=== PATIENT | male | born 1980 | race Caucasian/White ===

== ENCOUNTER 2017-01-31 09:22 | Emergency (ER) | payer BC ==
[2017-01-31] MEDS ORDERED: Tamsulosin 0.4 MG Cap.ER PO ONE (09:28)
[2017-01-31] MEDS ORDERED: Ondansetron 4 MG/2 ML SDV IVPUSH ONE (09:28)
[2017-01-31] MEDS ORDERED: Sodium Chloride 0.9% 10 ML Syringe FLUSH PRN (09:28)
[2017-01-31] MEDS ORDERED: Famotidine 20 MG/2 ML SDV IVPUSH ONE (09:28)
[2017-01-31] MEDS ORDERED: Ketorolac 30 MG/ML SDV IVPUSH ONE (09:28)
--- NOTE | 2017-01-31 09:28 | EDM.PDOC ---
ED HPI GENERAL MEDICAL PROBLEM - General Chief Complaint: Flank Pain Stated Complaint: Right side flank pain Time Seen by Provider: 01/31/17 09:25 Source of Information: Reports: Patient, Other. Denies: Old Records (No [facility] records available) History Limitations: Reports: No Limitations - History of Present Illness INITIAL COMMENTS - FREE TEXT/NARRATIVE: The patient was brought to the emergency room via private automobile by his coworker for evaluation of sudden onset 10/10 right-sided colic with symptoms starting at about 8 AM this morning when he woke up. His symptoms are similar to his previous recurrent colic attacks as below with patient already having a history of gout, although he is not on a special diet at this time. He denies any gross hematuria or other significant UTI symptoms. No recent history of other abdominal pain, heartburn, diarrhea, melena, gross hematochezia, or any food intolerance, including fatty foods, etc., although some mild nausea without emesis with his colic. His last bowel movement this morning was normal. The patient denies any chest pain/pressure, heart flutter, dizziness, orthostasis, orthopnea, paresthesias, recent decreased exercise tolerance, or any other anginal-type symptoms, however he does have some diaphoresis with his colic type symptoms. The patient also denies any recent fever, cough, wheezing, dyspnea, etc.. The patient has not taken his morning medications to this point. He has not taken any medications for his symptoms prior to arrival Onset: Today, Sudden Onset Date: 01/31/17 Onset Time: 08:00 Duration: Constant, Getting Worse Location: Reports: Abdomen. Denies: Head, Face, Neck, Chest, Back, Pelvis, Upper Extremity, Left, Upper Extremity, Right, Radiates to Quality: Reports: Same as Previous Episode, Sharp, Stabbing Severity: Severe Improves with: Reports: None Worsens with: Reports: None Context: Reports: Other (As above) Associated Symptoms: Reports: Diaphoresis, Nausea/Vomiting (No emesis). Denies : Confusion, Chest Pain, Cough, Fever/Chills, Headaches, Loss of Appetite, Malaise, Shortness of Breath, Syncope, Weakness Treatments FACE WORKER: Reports: Other (see below) (None) Right Flank Pain Pain Score (Numeric/FACES): 10 - Related Data Allergies Allergy/AdvReac Type Severity Reaction Status Date / Time amoxicillin Allergy Hives Verified 01/31/17 09:24 Penicillins Allergy Hives Verified 01/31/17 09:24 Home Meds: Home Meds Allopurinol [Zyloprim] 300 mg PO QAM 01/31/17 [History] Cetirizine [ZyrTEC] 10 mg PO QAM 01/31/17 [History] Levothyroxine Sodium [Synthroid] 300 mcg PO QAM 01/31/17 [History] Propranolol HCl [Propranolol] 10 mg PO BID 01/31/17 [History] Past Medical History HEENT History: Reports: Allergic Rhinitis, Impaired Vision, Other (See Below). Denies: Cataract, Glaucoma, Hard of Hearing, Macular Degeneration, Retinal Detachment Other HEENT History: The patient wears glasses; seasonal allergies Cardiovascular History: Reports: Hypertension. Denies: Afib, Aneurysm, Arrhythmia, Blood Clots/VTE/DVT, CAD, Heart Murmur, High Cholesterol, CA, Syncope Respiratory History: Reports: Asthma, Intubation, Previous, Sleep Apnea, Other ( See Below). Denies: COPD, PE, Pneumothorax, TB Other Respiratory History: Asthma since childhood with no current medications required. Patient has been compliant with his CPAP Gastrointestinal History: Reports: None. Denies: Celiac Disease, Cholelithiasis , Chronic Constipation, Chronic Diarrhea, Colon Polyp, Diverticulosis, Fecal Incontinence, Gastritis, GERD, Hepatitis, Hiatal Hernia, Inflammatory Bowel Disease, Irritable Bowel Syndrome, Jaundice, Pancreatitis, PUD Genitourinary History: Reports: Hydronephrosis, Renal Calculus, UTI, Recurrent, Other (See Below). Denies: Acute Renal Failure, Chronic Renal Insuffiency, Retention, Urinary, Urinary Incontinence Other Genitourinary History: History of recurrent UTIs and hydronephrosis with urolithiasis/colic; bilateral urolithiasis with recurrent colic with initial episode in about 2009 and last episode in in 2013 Musculoskeletal History: Reports: Arthritis, Gout. Denies: Amputation, Back Pain, Chronic, Fracture, Neck Pain, Chronic, Osteoarthritis, RA, SLE Neurological History: Reports: Headaches, Chronic, Migraines, Other (See Below) . Denies: Cerebral Aneurysms, Concussion, CVA, Head Trauma, MS, Neuropathy, Peripheral, Parkinson's, Seizure, TIA Other Neuro History: Migraine headaches about twice per year including previous ocular migraine on the left side; benign congenital cerebral lipoma? Psychiatric History: Reports: None. Denies: Abuse, Victim of, ADD, ADHD, Addiction, Anxiety, Depression, Psych Hospitalization(s), PTSD, Suicide Attempt , Suicidal Ideation Endocrine/Metabolic History: Reports: Hypothyroidism, Obesity/BMI 30+. Denies: Diabetes, Type I, Diabetes, Type II, IDDM Hematologic History: Reports: None. Denies: Anemia, Blood Transfusion(s), Iron Deficiency Immunologic History: Reports: None. Denies: AIDS, HIV, SLE Oncologic (Cancer) History: Reports: None. Denies: Basal Cell Carcinoma, Hodgkin's Lymphoma, Leukemia, Lymphoma, Malignant Melanoma, Non-Hodgkin's Lymphoma, Squamous Cell Carcinoma Dermatologic History: Reports: None. Denies: Eczema, Psoriasis - Infectious Disease History Infectious Disease History: Reports: Chicken Pox. Denies: C-Difficile, Measles , Meningitis, Mononucleosis, MRSA, Mumps, Pertussis (Whooping Cough), Rheumatic Fever, Rubella, Scarlet Fever, Shingles, TB, VRE - Past Surgical History Head Surgeries/Procedures: Reports: None HEENT Surgical History: Reports: Oral Surgery, Other (See Below). Denies: Adenoidectomy, Cataract Surgery, Eye Surgery, Laser Surgery, LASIK, Myringotomy w Tube(s), Naso-Sinus Surgery, Tonsillectomy Other HEENT Surgeries/Procedures: [place] teeth extraction 2 in about 2011 Cardiovascular Surgical History: Reports: None. Denies: Varicose, Vascular Surgery Respiratory Surgical History: Reports: None. Denies: Thoracentesis GI Surgical History: Reports: None. Denies: Appendectomy, Cholecystectomy, Colonoscopy, EGD, Hernia, Abdominal, Hernia, Inguinal, Hernia Repair/Other Male Surgical History: Reports: Circumcision, Kidney Stone Extraction, Renal Calculus, Vasectomy, Other (See Below). Denies: Lithotripsy (ESWL), TURP- Transurethral Resection of Prostate, Varicocele Resection Other Male Surgeries/Procedures: Circumcision as a child; vasectomy 2006; bilateral stone removal Neurological Surgical History: Reports: None. Denies: C-Spine, Discectomy, Laminectomy, Lumbar Spine, Sacral Spine, Spinal Fusion Musculoskeletal Surgical History: Reports: None. Denies: Arthroscopic Procedure , Carpal Tunnel, Ganglion Cyst, Joint Replacement, ORIF, Shoulder Surgery Oncologic Surgical History: Reports: None Dermatological Surgical History: Reports: None - Past Imaging History Past Imaging History: Reports: Cardiac Echo (2010), CAT Scan (CT scans of the abdomen and pelvis secondary to recurrent urolithiasis), MRI (Brain in 2010), Sleep Study (Sleep study in the early ) Social & Family History - Tobacco Use Smoking Status *Q: Current Every Day Smoker Tobacco Use Within Last Twelve Months: Cigarettes Years of Tobacco use: 19 Packs/Tins Daily: 0.5 (Started smoking at age 17) Packs/Tins Daily Comment: Trying to quit smoking with last use about 2 weeks ago Used Tobacco, but Quit: Yes Smoking Cessation Information Provided To Patient: Yes Second Hand Smoke Exposure: Yes Source of Second Hand Smoke Exposure: Fianc and son smoke Second Hand Smoke Education Provided: Yes - Caffeine Use Caffeine Use: Reports: Soda (2 sodas per day). Denies: Coffee, Energy Drinks, Tea - Alcohol Use Alcohol Use History: Yes Days Per Week of Alcohol Use: 0 (No previous DWIs, problems with alcohol abuse, etc.) Number of Drinks Per Day: 1 (Usually mixed drinks once per month) Total Drinks Per Week: 0 Alcohol Use in Last Twelve Months: Yes Alcohol Use Frequency: Socially - Recreational Drug Use Recreational Drug Use: Yes Drug Use in Last 12 Months: No Recreational Drug Type: Reports: Marijuana/Hashish (Experimentation in 1999). 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 Denies: Fever, Chills, Weakness, Fatigue, Night Sweats, Decreased Appetite, Weight Loss HEENT: Reports: Glasses. Denies: Contact Lenses, Dental Pain, Ear Discharge, Ear Pain, Eye Discharge, Eye Pain, Hearing Loss, Sinus Problem, Throat Pain, Throat Swelling, Vertigo, Vision Change Respiratory: Reports: No Symptoms. Denies: Shortness of Breath, Wheezing, Pleuritic Chest Pain, Cough, Hemoptysis Cardiovascular: Reports: No Symptoms. Denies: Chest Pain, Blood Pressure Problem, Claudication, Dyspnea on Exertion, Edema, Lightheadedness, Orthopnea, Palpitations, Syncope Endocrine: Reports: No Symptoms. Denies: Fatigue GI/Abdominal: Reports: Abdominal Pain (Colic), Nausea (With colic). Denies: Anorexia, Black Stool, Bloody Stool, Constipation, Diarrhea, Decreased Appetite , Difficulty Swallowing, Distension, Flatus, Hematemesis, Hematochezia, Melena, Mucous in Stool, Stool Incontinence, Vomiting : Reports: Flank Pain (Right-sided). Denies: Discharge, Dysuria, Frequency, Hematuria, Incontinence, Irregular Menses, Pain, Urgency, Urinary Retention Musculoskeletal: Reports: No Symptoms. Denies: Neck Pain, Shoulder Pain, Arm Pain, Back Pain, Leg Pain Skin: Reports: Diaphoresis (With colic). Denies: Cyanosis, Jaundice, Mottled, Pallor, Bruising, Pruritis, Wound Neurological: Reports: No Symptoms. Denies: Confusion, Dizziness, Headache, Numbness, Paresthesia, Seizure, Syncope, Tingling, Tremors, Weakness Psychiatric: Reports: No Symptoms. Denies: Agitation, Anxiety, Confusion, Cravings, Depression, Hallucinations Hematologic/Lymphatic: Reports: No Symptoms Immunologic: Reports: No Symptoms ED EXAM, RENAL/ - Physical Exam Exam: See Below Exam Limited By: No Limitations General Appearance: Alert, WD/WN, Mild Distress (Secondary to colic) Head: Atraumatic, Normocephalic Neck: Normal Inspection, Supple, Non-Tender, Full Range of Motion. No: Lymphadenopathy (L), Lymphadenopathy (R), Thyromegaly Respiratory/Chest: No Respiratory Distress, Lungs Clear, Normal Breath Sounds, No Accessory Muscle Use, Chest Non-Tender. No: Pleural Rub, Retractions Cardiovascular: Normal Peripheral Pulses, Regular Rate, Rhythm, No Edema, No Gallop, No JVD, No Murmur, No Rub. No: Gallop/S3, Gallop/S4, Friction Rub GI/Abdominal: Normal Bowel Sounds, Soft, Non-Tender, No Organomegaly, No Distention, No Abnormal Bruit, No Mass, Pelvis Stable. No: Guarding (Male) Exam: Deferred Rectal (Males) Exam: Deferred Back Exam: Full Range of Motion, CVA Tenderness (R) (Borderline but mostly colic ). No: CVA Tenderness (L), Muscle Spasm Extremities: Normal Inspection, Normal Range of Motion, Non-Tender, No Pedal Edema, Normal Capillary Refill. No: Vinay's Sign Neurological: Alert, Oriented, CN II-XII Intact, Normal Cognition, Normal Gait, Normal Reflexes (Negative Babinski's), No Motor/Sensory Deficits Psychiatric: Normal Affect, Normal Mood Skin Exam: Warm, Intact, Normal Color, No Rash, Diaphoretic (Secondary to colic) , Tattoo(s) (Multiple) Lymphatic: No Adenopathy Course - Vital Signs Last Recorded V/S: Last Vital Signs Temp 36.6 C 01/31/17 09:25 Pulse 74 01/31/17 09:25 Resp 20 01/31/17 09:25 BP 136/81 01/31/17 10:00 Pulse Ox 100 01/31/17 09:25 Vital Signs - 24 hr 01/31/17 01/31/17 09:25 10:00 Temperature [ 36.6 C Oral] Pulse, 74 Peripheral [ Pulse Oximetry] Respiratory 20 Rate Blood Pressure 161/101 H 136/81 [Left Upper Arm ] O2 Sat by Pulse 100 Oximetry - Orders/Labs/Meds Orders: Active Orders 24 hr Category Date Time Status Peripheral IV Care [RC] . DIRECTED Care 01/31/17 09:28 Active Abdomen Pelvis wo Cont [CT] Stat Exams 01/31/17 09:31 Taken CULTURE URINE [RM] Routine Lab 01/31/17 11:39 Received Obtain Past Medical Record [OM.PC] Routine Oth 01/31/17 09:29 Active Peripheral IV Insertion Adult [OM.PC] Stat Oth 01/31/17 09:28 Ordered Labs: Laboratory Tests 01/31/17 01/31/17 01/31/17 Range/Units 10:00 10:00 10:00 WBC 9.5 (4.0-10.2) K/uL RBC 4.54 (4.33-5.41) M/uL Hgb 14.7 (13.1-16.8) g/dL Hct 43.0 (39.0-49.0) % MCV 94.7 (84.0-98.0) fL MCH 32.4 (28.2-33.3) pg MCHC 34.2 (31.7-36.0) g/dL RDW 14.6 H (11.2-14.1) % Plt Count 239 (150-350) K/uL Neut % (Auto) 59.4 (45.0-80.0) % Lymph % (Auto) 26.2 (10.0-50.0) % [place] % (Auto) 11.4 (2.0-14.0) % Eos % (Auto) 2.6 (0.0-5.0) % Baso % (Auto) 0.4 (0.0-2.0) % Neut # (Auto) 5.66 (1.40-7.00) K/uL Lymph # (Auto) 2.50 (0.50-3.50) K/uL [place] # (Auto) 1.09 H (0.00-1.00) K/uL Eos # (Auto) 0.25 (0.00-0.50) K/uL Baso # (Auto) 0.04 (0.00-0.20) K/uL Sodium 139 (136-145) mmol/L Potassium 3.6 (3.5-5.1) mmol/L Chloride 102 (98-107) mmol/L Carbon Dioxide 26.5 (21.0-32.0) mmol/L BUN 8 (7-18) mg/dL Creatinine 0.73 (0.51-1.17) mg/dL Est Cr Clr Drug Dosing 152.07 mL/min Estimated GFR (MDRD) > 60 mL/min Glucose 175 H (74-106) mg/dL Hemoglobin A1c (4.3-5.7) % Uric Acid 5.3 (2.6-7.2) mg/dL Calcium 9.1 (8.5-10.1) mg/dL Total Bilirubin 0.6 (0.2-1.0) mg/dL AST 62 H (15-37) U/L ALT 69 (12-78) U/L Alkaline Phosphatase 121 H (46-116) IU/L Total Protein 8.2 (6.4-8.2) g/dL Albumin 3.7 (3.4-5.0) g/dL Specimen Type Urine Color Urine Appearance Urine pH (5.0-9.0) Ur Specific [place] (1.005-1.030) Urine Protein (NEGATIVE) mg/dL Urine Glucose (UA) (NEGATIVE) mg/dL Urine Ketones (NEGATIVE) mg/dL Urine Occult Blood (NEGATIVE) Urine Nitrite (NEGATIVE) Urine Bilirubin (NEGATIVE) Urine Urobilinogen (0.2-1.0) E.U./dL Ur Leukocyte Esterase (NEGATIVE) Urine RBC /HPF Urine WBC /HPF Ur Epithelial Cells /LPF Urine Bacteria (NONE TO FEW) /HPF 01/31/17 01/31/17 Range/Units 10:00 11:39 WBC (4.0-10.2) K/uL RBC (4.33-5.41) M/uL Hgb (13.1-16.8) g/dL Hct (39.0-49.0) % MCV (84.0-98.0) fL MCH (28.2-33.3) pg MCHC (31.7-36.0) g/dL RDW (11.2-14.1) % Plt Count (150-350) K/uL Neut % (Auto) (45.0-80.0) % Lymph % (Auto) (10.0-50.0) % [place] % (Auto) (2.0-14.0) % Eos % (Auto) (0.0-5.0) % Baso % (Auto) (0.0-2.0) % Neut # (Auto) (1.40-7.00) K/uL Lymph # (Auto) (0.50-3.50) K/uL [place] # (Auto) (0.00-1.00) K/uL Eos # (Auto) (0.00-0.50) K/uL Baso # (Auto) (0.00-0.20) K/uL Sodium (136-145) mmol/L Potassium (3.5-5.1) mmol/L Chloride (98-107) mmol/L Carbon Dioxide (21.0-32.0) mmol/L BUN (7-18) mg/dL Creatinine (0.51-1.17) mg/dL Est Cr Clr Drug Dosing mL/min Estimated GFR (MDRD) mL/min Glucose (74-106) mg/dL Hemoglobin A1c 7.0 H (4.3-5.7) % Uric Acid (2.6-7.2) mg/dL Calcium (8.5-10.1) mg/dL Total Bilirubin (0.2-1.0) mg/dL AST (15-37) U/L ALT (12-78) U/L Alkaline Phosphatase (46-116) IU/L Total Protein (6.4-8.2) g/dL Albumin (3.4-5.0) g/dL Specimen Type Urincc Urine Color Yellow Urine Appearance Clear Urine pH 6.0 (5.0-9.0) Ur Specific [place] 1.020 (1.005-1.030) Urine Protein 30 H (NEGATIVE) mg/dL Urine Glucose (UA) Negative (NEGATIVE) mg/dL Urine Ketones Negative (NEGATIVE) mg/dL Urine Occult Blood Large H (NEGATIVE) Urine Nitrite Negative (NEGATIVE) Urine Bilirubin Negative (NEGATIVE) Urine Urobilinogen 1.0 (0.2-1.0) E.U./dL Ur Leukocyte Esterase Negative (NEGATIVE) Urine RBC 20-30 H /HPF Urine WBC 0-5 /HPF Ur Epithelial Cells Few /LPF Urine Bacteria Rare (NONE TO FEW) /HPF Urine specimen set up for culture and sensitivity Meds: Medications Discontinued Medications Generic Name Dose Route Start Last Admin Trade Name Tenzin PRN Reason Stop Dose Admin Famotidine 40 mg 01/31/17 09:28 01/31/17 10:09 Pepcid IVPUSH 01/31/17 09:29 40 mg ONETIME ONE Administration Fentanyl 50 mcg 01/31/17 09:29 01/31/17 09:52 Sublimaze IVPUSH 01/31/17 09:30 50 mcg ONETIME ONE Administration Lactated Ringer's 1,000 mls @ 999 mls/hr 01/31/17 09:31 01/31/17 09:51 Ringers, Lactated IV 01/31/17 10:31 999 mls/hr .BOLUS ONE Administration Ketorolac Tromethamine 30 mg 01/31/17 09:28 01/31/17 10:04 Toradol IVPUSH 01/31/17 09:29 30 mg ONETIME ONE Administration Ondansetron HCl 4 mg 01/31/17 09:28 01/31/17 09:51 Zofran IVPUSH 01/31/17 09:29 4 mg ONETIME ONE Administration Sodium Chloride 10 ml 01/31/17 09:28 Saline Flush FLUSH ASDIRECTED PRN Keep Vein Open Tamsulosin HCl 0.4 mg 01/31/17 09:28 01/31/17 10:09 Flomax PO 01/31/17 09:29 0.4 mg ONETIME ONE Administration - Radiology Interpretation Free Text/Narrative:: Telephone consultation at 11:43 AM with the radiology department at [facility] with preliminary verbal report of noncontrast CT scan of the abdomen and pelvis using stone protocol. 3 mm distal right calcification at the UVJ with only mild secondary hydronephrosis. Incidental bilateral nephrolithiasis nonobstructing in nature with additional bilateral mild renal cysts. Additional evidence of mild inflammation of the liver consistent with probable fatty liver. CT Results Date: 01/31/17 CT Results Time: 11:43 Departure - Departure Time of Disposition: 12:10 Disposition: Home, Self-Care 01 Clinical Impression: Obesity (BMI 35.0-39.9 without comorbidity), Elevated LFTs, Hypothyroidism ( acquired), Renal cysts, acquired, bilateral, Tobacco abuse counseling Urolithiasis Qualifiers: Urinary calculus location: lower urinary tract Qualified Code(s): N21.9 - Calculus of lower urinary tract, unspecified Hypertension Qualifiers: Hypertension type: essential hypertension Qualified Code(s): I10 - Essential ( primary) hypertension Gout Qualifiers: Gout site: unspecified site Encounter type: sequela Chronicity: chronic Presence of tophus: without tophus Diabetes mellitus Qualifiers: Diabetes mellitus type: type 2 Diabetes mellitus complication status: without complication Diabetes mellitus mcfp insulin use: without buttermaker use Qualified Code(s): E11.9 - Type 2 diabetes mellitus without complications - Discharge Information Instructions: Fat and Cholesterol Restricted Diet, Ketorolac injection, Ondansetron injection, Kidney Stones, [id number], Famotidine injection, Type 2 Diabetes Mellitus, Adult, [id number], Nonalcoholic Fatty Liver Disease Diet Referrals: PCP,Not In Area [Ordering Only Provider] - Forms: ED Department Discharge, ED Return to Work/School Form Additional Instructions: 1. Followup with your regular provider in 10-14 days as directed otherwise as already scheduled for repeat TSH and lipid panel. 2. Encourage oral fluids as directed 3. Strain all urine and bring stone to your regular provider or this facility as directed for further stone analysis. 4. Tylenol 650 mg by mouth every 4 hours and/or OTC ibuprofen 2-3 tabs by mouth every 6 hours with food as directed./needed. Next dose of ibuprofen in 6 hours as needed secondary to medications given in the emergency room 5. Urine tests should be repeated at follow up visit with possible repeat urine culture,etc. at that time. Today's urine culture is pending with results in about 2-3 days. We will call you, if we need to change your therapy. 6. Stop all tobacco use DAVONTE as directed/per provided information and consider contacting Quit [employer]ne, etc.. 7. Work excuse- See Form 8. Weight loss and exercise in moderation as discussed. Consider repeating LFTs , glycosylated hemoglobin, lipid panel etc. in about 3 months. Consider abdominal ultrasound, CT of the abdomen with contrast, versus MRI at that time, if LFTs elevation persists. - Problem List & Annotations (1) Urolithiasis SNOMED Code(s): 59828765 Code(s): N20.9 - URINARY CALCULUS, UNSPECIFIED Status: Acute Priority: High Annotation/Comment:: Note positive CT scan of the results as above. History of recurrent urolithiasis as above with severe colic symptoms on arrival. Overall good results with therapy in the emergency room as above. Close follow-up by his regular provider as per discharge instructions. Work excuse provided. Sedation precautions given secondary to IV fentanyl given in the emergency room Qualifiers: Urinary calculus location: lower urinary tract Qualified Code(s): N21.9 - Calculus of lower urinary tract, unspecified; N21 - Calculus of lower urinary tract (2) Diabetes mellitus SNOMED Code(s): 55656158 Code(s): E11.9 - TYPE 2 DIABETES MELLITUS WITHOUT COMPLICATIONS Status: Acute Priority: High Onset Date: 01/31/17 Annotation/Comment:: Note positive and elevated glycosylated hemoglobin today with newly diagnosed diabetes mellitus today.. Patient did have soda earlier this morning but no other breakfast. Dietary information provided. Close follow-up by regular provider as per discharge instructions including possible initiation of medical therapy, etc. Qualifiers: Diabetes mellitus type: type 2 Diabetes mellitus complication status: without complication Diabetes mellitus buttermaker insulin use: without buttermaker use Qualified Code(s): E11.9 - Type 2 diabetes mellitus without complications (3) Elevated LFTs SNOMED Code(s): 905681620 Code(s): R79.89 - OTHER SPECIFIED ABNORMAL FINDINGS OF BLOOD CHEMISTRY Status: Acute Priority: Medium Onset Date: 01/31/17 Annotation/Comment:: LFTs elevation possibly secondary to patient's obesity and/or fatty liver. Continue to observe closely by his regular providers as per discharge instructions. Newly diagnosed fatty liver by CT scan as above. Dietary information provided (4) Gout SNOMED Code(s): 57004009 Code(s): M10.9 - GOUT, UNSPECIFIED Status: Chronic Priority: Medium Annotation/Comment:: History of gout and recurrent urolithiasis as above. No current gout type symptoms Qualifiers: Gout site: unspecified site Encounter type: sequela Chronicity: chronic Presence of tophus: without tophus (5) Hypertension SNOMED Code(s): 61496853 Code(s): I10 - ESSENTIAL (PRIMARY) HYPERTENSION Status: Chronic Priority : Medium Annotation/Comment:: Previously under good control by patient history , however somewhat elevated in the emergency room secondary to his colic. The patient had not taken his morning medications as above. Continue to observe closely by his regular provider. Blood pressures improved at time of discharge without therapy Qualifiers: Hypertension type: essential hypertension Qualified Code(s): I10 - Essential (primary) hypertension (6) Hypothyroidism (acquired) SNOMED Code(s): 852811885 Code(s): E03.9 - HYPOTHYROIDISM, UNSPECIFIED Status: Chronic Priority: Medium Annotation/Comment:: He recently had his Synthroid increased about 23 weeks ago and does have a follow-up appointment to have his TSH repeated by his history (7) Obesity (BMI 35.0-39.9 without comorbidity) SNOMED Code(s): 727410883 Code(s): E66.9 - OBESITY, UNSPECIFIED Status: Chronic Priority: Medium Annotation/Comment:: Exercise and weight loss in moderation advisable (8) Renal cysts, acquired, bilateral SNOMED Code(s): 661310079 Code(s): N28.1 - CYST OF KIDNEY, ACQUIRED Status: Acute Priority: Medium Onset Date: 01/31/17 Annotation/Comment:: Nonsymptomatic. Observe for now. Nonsymptomatic (9) Tobacco abuse counseling SNOMED Code(s): 196635804, 445316408 Code(s): Z71.6 - TOBACCO ABUSE COUNSELING Status: Chronic Priority: Medium Annotation/Comment:: Tobacco cessation strongly encouraged with information provided at discharge - Problem List Review Problem List Initiated/Reviewed/Updated: Yes - My Orders Last 24 Hours: My Active Orders 01/31/17 09:28 Peripheral IV Care [RC] . DIRECTED Peripheral IV Insertion Adult [OM.PC] Stat 01/31/17 09:29 Obtain Past Medical Record [OM.PC] Routine 01/31/17 09:31 Abdomen Pelvis wo Cont [CT] Stat 01/31/17 11:39 CULTURE URINE [RM] Routine - Assessment/Plan Last 24 Hours: My Active Orders 01/31/17 09:28 Peripheral IV Care [RC] . DIRECTED Peripheral IV Insertion Adult [OM.PC] Stat 01/31/17 09:29 Obtain Past Medical Record [OM.PC] Routine 12 09:31 Abdomen Pelvis wo Cont [CT] Stat 01/31/17 11:39 CULTURE URINE [RM] Routine Assessment:: As above Plan: As above. Extensive precautions were given to the patient, who is in agreement with the treatment plan. See Patient Instructions for further treatment and plan.
[2017-01-31] MEDS ORDERED: fentaNYL 100 MCG/2 ML SDV IVPUSH ONE (09:29)
[2017-01-31] MEDS ORDERED: Lactated Ringers 1,000 ML IV ONE (09:31)
[2017-01-31 10:17] LABS: CHLORIDE,CL 102 mmol/L (98-107); SODIUM,NA 139 mmol/L (136-145)
== END 2017-01-31 12:10 | disposition home or self-care (01) ==
LOC: LL.ED 09:22
DX: N13.2 Hydronephrosis with renal and ureteral calculous obstruction (principal); N28.1 Cyst of kidney, acquired; E11.9 Type 2 diabetes mellitus without complications; M1A.9XX0 Chronic gout, unspecified, without tophus (tophi); G47.30 Sleep apnea, unspecified; I10 Essential (primary) hypertension; F17.210 Nicotine dependence, cigarettes, uncomplicated; R79.89 Other specified abnormal findings of blood chemistry; E66.9 Obesity, unspecified; Z68.39 Body mass index [BMI] 39.0-39.9, adult; Z71.6 Tobacco abuse counseling; Z88.0 Allergy status to penicillin; Z88.9 Allergy status to unspecified drugs, medicaments and biological substances
CPT/HCPCS: 36415; 74176; 80053; 81001; 83036; 84550; 85025; 87086; 96361; 96374; 96375; 99284; A9270; J1885; J2405; J3010; J7120; S0028

== ENCOUNTER 2017-09-12 05:07 | Emergency (ER) | payer BC | END 2017-09-12 05:25 | disposition left against medical advice (07) | LOC: LL.ED 05:07 | DX: Z53.21 Procedure and treatment not carried out due to patient leaving prior to being seen by health care provider (principal) ==

== ENCOUNTER 2021-01-21 13:44 | Emergency (ER) | payer BC ==
--- NOTE | 2021-01-21 13:58 | EDM.PDOC ---
ED HPI GENERAL MEDICAL PROBLEM - General Chief Complaint: Syncope Stated Complaint: lightheaded, near syncope Time Seen by Provider: 01/21/21 13:57 Source of Information: Reports: Patient - History of Present Illness INITIAL COMMENTS - FREE TEXT/NARRATIVE: Smith is a 40 y/o male who comes to the ER with complaints of not feeling well since Monday. Has been lightheaded and felt like he almost was going to pass out but did not. He lost his sense of smell and taste a day or so ago. No fever. Breathing okay. Not much appetite and hard to drink fluids. He has not really eaten anything for 3 days. He has been quite congested, had green nasal drainage the first couple days now it's clear. Has also had a cough intermittently. He is a diabetic and currently on Metformin, reports that a couple days ago his blood sugars were very low. chest Pain Score (Numeric/FACES): 4 - Related Data Allergies Allergy/AdvReac Type Severity Reaction Status Date / Time amoxicillin Allergy Hives Verified 01/21/21 13:46 Penicillins Allergy Hives Verified 01/21/21 13:46 Sulfa (Sulfonamide Allergy Hives Verified 01/21/21 13:46 Antibiotics) Home Meds: Home Meds Allopurinol [Zyloprim] 300 mg PO QAM 01/31/17 [History] Cetirizine [ZyrTEC] 10 mg PO QAM 01/31/17 [History] Cefdinir 300 mg PO BID #14 capsule 01/21/21 [Rx] Ibuprofen 400 mg PO DAILY 01/21/21 [History] Rosuvastatin [Crestor] 5 mg PO DAILY 01/21/21 [History] lisinopriL [Lisinopril] 10 mg PO DAILY 01/21/21 [History] metFORMIN HCl [Metformin HCl] 1,000 mg PO 08 01/21/21 [History] metFORMIN HCl [Metformin HCl] 500 mg PO 1800 01/21/21 [History] Past Medical History HEENT History: Reports: Allergic Rhinitis, Impaired Vision, Other (See Below) Other HEENT History: The patient wears glasses; seasonal allergies Cardiovascular History: Reports: Hypertension Respiratory History: Reports: Asthma, Intubation, Previous, Sleep Apnea, Other (See Below) Other Respiratory History: Asthma since childhood with no current medications required. Patient has been compliant with his CPAP Gastrointestinal History: Reports: None Genitourinary History: Reports: Hydronephrosis, Renal Calculus, UTI, Recurrent, Other (See Below) Other Genitourinary History: History of recurrent UTIs and hydronephrosis with urolithiasis/colic; bilateral urolithiasis with recurrent colic with initial episode in about 2009 and last episode in in 2013 Musculoskeletal History: Reports: Arthritis, Gout Neurological History: Reports: Headaches, Chronic, Migraines, Other (See Below) Other Neuro History: Migraine headaches about twice per year including previous ocular migraine on the left side; benign congenital cerebral lipoma? Psychiatric History: Reports: None Endocrine/Metabolic History: Reports: Hypothyroidism, Obesity/BMI 30+ Hematologic History: Reports: None Immunologic History: Reports: None Oncologic (Cancer) History: Reports: None Dermatologic History: Reports: None - Infectious Disease History Infectious Disease History: Reports: Chicken Pox - Past Surgical History Head Surgeries/Procedures: Reports: None HEENT Surgical History: Reports: Oral Surgery, Other (See Below) Other HEENT Surgeries/Procedures: [place] teeth extraction 2 in about 2011 Cardiovascular Surgical History: Reports: None Respiratory Surgical History: Reports: None GI Surgical History: Reports: None Male Surgical History: Reports: Circumcision, Kidney Stone Extraction, Renal Calculus, Vasectomy, Other (See Below) Other Male Surgeries/Procedures: Circumcision as a child; vasectomy 2006; bilateral stone removal Neurological Surgical History: Reports: None Musculoskeletal Surgical History: Reports: None Oncologic Surgical History: Reports: None Dermatological Surgical History: Reports: None - Past Imaging History Past Imaging History: Reports: Cardiac Echo (2010), CAT Scan (CT scans of the abdomen and pelvis secondary to recurrent urolithiasis), MRI (Brain in 2010), Sleep Study (Sleep study in the early ) Social & Family History - Caffeine Use Caffeine Use: Reports: Soda - Sexual History Sexual History: Reports: Sexually Active, Single Partner - Living Situation & Occupation Living situation: Reports: (2008 with 3 children from that relationship), with Significant Other (Fianc and 4 stepchildren) 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) Review of Systems - Review of Systems Review Of Systems: See Below Constitutional: Reports: Weakness Eyes: Reports: No Symptoms Ears: Reports: Dizziness Nose: Reports: Congestion, Clear Discharge, Purulent Discharge Mouth/Throat: Reports: No Symptoms Respiratory: Reports: Cough Cardiovascular: Reports: No Symptoms GI/Abdominal: Reports: Decreased Appetite, Nausea Genitourinary: Reports: No Symptoms Musculoskeletal: Reports: No Symptoms Skin: Reports: No Symptoms Neurological: Reports: Dizziness, Headache Psychiatric: Reports: No Symptoms ED EXAM, GENERAL - Physical Exam Exam: See Below General Appearance: Alert, WD/WN, No Apparent Distress (Obese male, appears to not feel well.) Eye Exam: Bilateral Eye: PERRL Ears: Normal External Exam, Normal Canal, Hearing Grossly Normal Ear Exam: Bilateral Ear: TM Dull Nose: Normal Inspection, Normal Mucosa Throat/Mouth: Normal Inspection, Normal Lips, Normal Oropharynx, Normal Voice Head: Atraumatic, Normocephalic Neck: Supple Respiratory/Chest: No Respiratory Distress, Lungs Clear, Chest Non-Tender Cardiovascular: Regular Rate, Rhythm GI/Abdominal: Normal Bowel Sounds, Soft (Male) Exam: Deferred Rectal (Males) Exam: Deferred Back Exam: Normal Inspection, Full Range of Motion Extremities: Normal Inspection, Normal Range of Motion, No Pedal Edema, Normal Capillary Refill Neurological: Alert, Oriented, CN II-XII Intact, Normal Cognition, No Motor/Sensory Deficits Psychiatric: Normal Affect, Normal Mood Skin Exam: Warm, Dry, Intact, Normal Color #1 Interpretation EKG Date: 01/21/21 Time: 15:22 Rhythm: NSR Rate (Beats/Min): 80 [place]: Normal P-Wave: Present QRS: Normal ST-T: Normal QT: Normal EKG Interpretation Comments: NSR Course - Vital Signs Text/Narrative:: 1357 Patient was seen by the POLICE [employer] PROGRAM COORDINATOR. COVID test ordered. 1435 COVID/flu/RSV negative. Will order additional labs and give a liter of LR and Zofran 4mg IVP. 1545 Labs reviewed, no acute findings. He is feeling better after IV fluids. Will treat for Sinusitis. Plan Cefdinir due to allergies. Written instructions were given and he left the ER in stable condition. Last Recorded V/S: Last Vital Signs Temp 37.7 C 01/21/21 13:46 Pulse 87 01/21/21 13:46 Resp 20 01/21/21 13:46 BP 140/74 01/21/21 13:46 Pulse Ox 99 01/21/21 13:46 - Orders/Labs/Meds Orders: Active Orders 24 hr Category Date Time Status EKG Documentation Completion [RC] ASDIRECTED Care 01/21/21 14:47 Active EKG Documentation Completion [RC] STAT Care 01/21/21 14:46 Active C-REACTIVE PROTEIN [CHEM] Stat Lab 01/21/21 15:07 Received COMPREHENSIVE METABOLIC PN,CMP [CHEM] Stat Lab 01/21/21 15:07 Received LACTIC ACID [CHEM] Stat Lab 01/21/21 15:07 Received MAGNESIUM [CHEM] Stat Lab 01/21/21 15:07 Received TROPONIN I HIGH SENSITIVITY [CHEM] Stat Lab 01/21/21 15:07 Received UA RFX SELENE AND CULT IF INDIC [URIN] Stat Lab 01/21/21 14:47 Ordered Lactated Ringers [Ringers, Lactated] 1,000 ml Med 01/21/21 14:47 Active IV .BOLUS Sodium Chloride 0.9% [Saline Flush] Med 01/21/21 14:47 Active 10 ml FLUSH ASDIRECTED PRN Saline Lock Insert [OM.PC] Stat Oth 01/21/21 14:46 Ordered Medication Orders Lactated Ringer's (Ringers, Lactated) 1,000 mls @ 999 mls/hr IV .BOLUS ONE Stop: 01/21/21 15:47 Sodium Chloride (Sodium Chloride 0.9% 10 Ml Syringe) 10 ml FLUSH ASDIRECTED PRN PRN Reason: Keep Vein Open Labs: Laboratory Tests 01/21/21 01/21/21 Range/Units 13:50 15:07 WBC 7.8 (4.0-10.2) K/uL RBC 4.94 (4.33-5.41) M/uL Hgb 14.6 (13.1-16.8) g/dL Hct 43.8 (39.0-49.0) % MCV 88.7 D (84.0-98.0) fL MCH 29.6 (28.2-33.3) pg MCHC 33.3 (31.7-36.0) g/dL RDW 14.5 H (11.2-14.1) % Plt Count 193 (150-350) K/uL Neut % (Auto) 54.8 (45.0-80.0) % Lymph % (Auto) 22.1 (10.0-50.0) % [place] % (Auto) 15.8 H (2.0-14.0) % Eos % (Auto) 6.9 H (0.0-5.0) % Baso % (Auto) 0.4 (0.0-2.0) % Neut # (Auto) 4.25 (1.40-7.00) K/uL Lymph # (Auto) 1.72 (0.50-3.50) K/uL [place] # (Auto) 1.23 H (0.00-1.00) K/uL Eos # (Auto) 0.54 H (0.00-0.50) K/uL Baso # (Auto) 0.03 (0.00-0.20) K/uL Influenza Type A RNA Negative (NEGATIVE) RSV RNA (INAAT) Negative (NEGATIVE) Influenza Type B RNA Negative (NEGATIVE) SARS-CoV-2 RNA (JESSIKA) Negative (NEGATIVE) Meds: Medications Generic Name Dose Route Start Last Admin Trade Name Freq PRN Reason Stop Dose Admin Lactated Ringer's 1,000 mls @ 999 mls/hr 01/21/21 14:47 Ringers, Lactated IV 01/21/21 15:47 .BOLUS ONE Sodium Chloride 10 ml 01/21/21 14:47 Sodium Chloride 0.9% 10 Ml Syringe FLUSH ASDIRECTED PRN Keep Vein Open Discontinued Medications Generic Name Dose Route Start Last Admin Trade Name Freq PRN Reason Stop Dose Admin Ondansetron HCl 4 mg 01/21/21 14:47 Ondansetron 4 Mg/2 Ml Sdv IVPUSH 01/21/21 14:48 ONETIME ONE Departure - Departure Time of Disposition: 15:52 Disposition: Home, Self-Care 01 Condition: Good Clinical Impression: Near syncope Acute sinusitis Qualifiers: Sinusitis location: unspecified location Recurrence: not specified as recurrent Qualified Code(s): J01.90 - Acute sinusitis, unspecified - Discharge Information Prescriptions: Cefdinir 300 mg PO BID #14 capsule Instructions: Sinusitis, Adult Forms: ED Department Discharge Additional Instructions: -Cefdinir 300mg oral 2x daily fore 10 days #6 (ER Rx) #14(Rx) -Ibuprofen 200mg 3 tablets oral every 6 hours as needed pain/fever (Use over the counter meds) -Acetaminophen 325mg 2-3 tablets oral every 6 hours as needed for pain/fever (Use over the counter meds) -Cetirizine 10 mg po q day runny nose (OTC meds) -Fluticasone propionate (50mcg/sp) 2 sprays each nare daily(Use OTC meds) -Guaifensen DM 10 ml oral very 4 hours as needed for cough (Use OTC meds) -Get a Melany-Med nasal rinse kit at the pharmacy and use saline to rinse your nasal passages out 2-3 a day -Drink plenty of fluids -Rest -Follow up with your PCP if you are not feeling better -Return to the ER if you have other Sepsis Event Note (ED) - Focused Exam Vital Signs: Vital Signs Temp Pulse Resp BP Pulse Ox 01/21/21 13:46 37.7 C 87 20 140/74 99 - Problem List & Annotations (1) Near syncope SNOMED Code(s): 395944072 Code(s): R55 - SYNCOPE AND COLLAPSE Status: Acute Annotation/Comment:: Labs negative, EKG NSR. Doubt cardic etiology. [place] better in ER after IV fluids. (2) Acute sinusitis SNOMED Code(s): 06168828 Code(s): J01.90 - ACUTE SINUSITIS, UNSPECIFIED Status: Acute Annotation/Comment:: Cefdinir for sinus sx. Qualifiers: Sinusitis location: unspecified location Recurrence: not specified as re current Qualified Code(s): J01.90 - Acute sinusitis, unspecified - Problem List Review Problem List Initiated/Reviewed/Updated: Yes - My Orders Last 24 Hours: My Active Orders 01/21/21 14:46 EKG Documentation Completion [RC] STAT Saline Lock Insert [OM.PC] Stat 01/21/21 14:47 EKG Documentation Completion [RC] ASDIRECTED UA RFX SELENE AND CULT IF INDIC [URIN] Stat Lactated Ringers [Ringers, Lactated] 1,000 ml IV .BOLUS Sodium Chloride 0.9% [Saline Flush] 10 ml FLUSH ASDIRECTED PRN 01/21/21 15:07 C-REACTIVE PROTEIN [CHEM] Stat COMPREHENSIVE METABOLIC PN,CMP [CHEM] Stat LACTIC ACID [CHEM] Stat MAGNESIUM [CHEM] Stat TROPONIN I HIGH SENSITIVITY [CHEM] Stat - Assessment/Plan Last 24 Hours: My Active Orders 01/21/21 14:46 EKG Documentation Completion [RC] STAT Saline Lock Insert [OM.PC] Stat 01/21/21 14:47 EKG Documentation Completion [RC] ASDIRECTED UA RFX SELENE AND CULT IF INDIC [URIN] Stat Lactated Ringers [Ringers, Lactated] 1,000 ml IV .BOLUS Sodium Chloride 0.9% [Saline Flush] 10 ml FLUSH ASDIRECTED PRN 01/21/21 15:07 C-REACTIVE PROTEIN [CHEM] Stat COMPREHENSIVE METABOLIC PN,CMP [CHEM] Stat LACTIC ACID [CHEM] Stat MAGNESIUM [CHEM] Stat TROPONIN I HIGH SENSITIVITY [CHEM] Stat Plan: As above
[2021-01-21 14:40] LABS: CORONAVIRUS COVID-19 NAA NEGATIVE (NEGATIVE); RESPIRATORY SYNCYTIAL VIR NAA NEGATIVE (NEGATIVE)
[2021-01-21] MEDS ORDERED: Sodium Chloride 0.9% 10 ML Syringe FLUSH PRN (14:47)
[2021-01-21] MEDS ORDERED: Ondansetron 4 MG/2 ML SDV IVPUSH ONE (14:47)
[2021-01-21] MEDS ORDERED: Lactated Ringers 1,000 ML IV ONE (14:47)
[2021-01-21 15:38] LABS: ANION GAP 11.9 meq/L (7-15); CHLORIDE,CL 104 mmol/L (98-107); SODIUM,NA 139 mmol/L (136-145)
== END 2021-01-21 16:30 | disposition home or self-care (01) ==
LOC: LL.ED 13:44
DX: R55 Syncope and collapse (principal); J01.90 Acute sinusitis, unspecified; R42 Dizziness and giddiness; I10 Essential (primary) hypertension; M10.9 Gout, unspecified; E03.9 Hypothyroidism, unspecified; E66.9 Obesity, unspecified; Z68.42 Body mass index [BMI] 45.0-49.9, adult; Z88.0 Allergy status to penicillin; Z88.2 Allergy status to sulfonamides; Z79.899 Other long term (current) drug therapy; Z79.84 Long term (current) use of oral hypoglycemic drugs
CPT/HCPCS: 0241U; 36415; 80053; 83605; 83735; 84484; 85025; 86140; 93005; 96374; 99284; J2405; J7120

== ENCOUNTER 2021-05-30 04:30 | Emergency (ER) | payer BC ==
[2021-05-30] MEDS ORDERED: Sodium Chloride 0.9% 10 ML Syringe FLUSH PRN (04:43)
[2021-05-30] MEDS ORDERED: Ondansetron 4 MG/2 ML SDV IVPUSH ONE (04:44)
[2021-05-30] MEDS ORDERED: HYDROmorphone 1 MG/ML Syringe IVPUSH ONE (04:44)
[2021-05-30] MEDS ORDERED: Lactated Ringers 1,000 ML IV SCH (04:45)
[2021-05-30] MEDS ORDERED: Ketorolac 15 MG/ML SDV IVPUSH ONE (04:45)
[2021-05-30 05:24] LABS: CHLORIDE,CL 104 mmol/L (98-107); SODIUM,NA 138 mmol/L (136-145)
== END 2021-05-30 06:55 | disposition home or self-care (01) ==
LOC: LL.ED 04:30
DX: M54.9 Dorsalgia, unspecified (principal); E86.0 Dehydration; I10 Essential (primary) hypertension; E03.9 Hypothyroidism, unspecified; E66.9 Obesity, unspecified; Z79.899 Other long term (current) drug therapy; Z88.0 Allergy status to penicillin; Z88.2 Allergy status to sulfonamides
CPT/HCPCS: 36415; 74176; 80053; 81001; 85025; 96374; 96375; 99284; 99284-25; J1170; J1885; J2405; J3490; J7120

== ENCOUNTER 2021-10-21 10:26 | Emergency (ER) | payer BC | END 2021-10-21 11:00 | disposition home or self-care (01) | LOC: LL.ED 10:26 | DX: M54.50 Low back pain, unspecified (principal); I10 Essential (primary) hypertension; E66.9 Obesity, unspecified; Z68.30 Body mass index [BMI] 30.0-30.9, adult; Z88.1 Allergy status to other antibiotic agents; Z88.0 Allergy status to penicillin; Z88.2 Allergy status to sulfonamides; Z79.899 Other long term (current) drug therapy; Z79.84 Long term (current) use of oral hypoglycemic drugs | CPT/HCPCS: 99283; 99284 ==

== ENCOUNTER 2022-04-18 12:48 | Emergency (ER) | payer OTHER ==
[2022-04-18 13:48] LABS: ANION GAP 9.8 meq/L (7-15)
[2022-04-18] MEDS ORDERED: Acetaminophen 500 MG Tab PO ONE (13:48)
== END 2022-04-18 14:44 | disposition home or self-care (01) ==
LOC: LL.ED 12:48
DX: S06.0X1A Concussion with loss of consciousness of 30 minutes or less, initial encounter (principal); E78.00 Pure hypercholesterolemia, unspecified; I10 Essential (primary) hypertension; J45.909 Unspecified asthma, uncomplicated; M10.9 Gout, unspecified; E03.9 Hypothyroidism, unspecified; E66.9 Obesity, unspecified; Z68.42 Body mass index [BMI] 45.0-49.9, adult; Z72.0 Tobacco use; Z88.0 Allergy status to penicillin; Z88.2 Allergy status to sulfonamides; Z79.84 Long term (current) use of oral hypoglycemic drugs; Z79.899 Other long term (current) drug therapy; W18.30XA Fall on same level, unspecified, initial encounter
CPT/HCPCS: 36415; 70450; 72125; 80053; 85025; 99283; 99284; A9270-GY

== ENCOUNTER 2022-05-11 09:39 | Emergency (ER) | payer OTHER ==
[2022-05-11] MEDS ORDERED: Meclizine 25 MG Tab PO ONE (10:55)
[2022-05-11 11:42] LABS: ANION GAP 5.3 meq/L (7-15); CHLORIDE,CL 104 mmol/L (98-107); SODIUM,NA 138 mmol/L (136-145)
[2022-05-11 11:58] LABS: ESTIMATED GFR 116 mL/min (>=60)
== END 2022-05-11 13:00 | disposition home or self-care (01) ==
LOC: LL.ED 09:39
DX: S06.0X9A Concussion with loss of consciousness of unspecified duration, initial encounter (principal); H81.10 Benign paroxysmal vertigo, unspecified ear; E11.9 Type 2 diabetes mellitus without complications; E03.9 Hypothyroidism, unspecified; I10 Essential (primary) hypertension; M10.9 Gout, unspecified; F17.210 Nicotine dependence, cigarettes, uncomplicated; E66.9 Obesity, unspecified; Z68.30 Body mass index [BMI] 30.0-30.9, adult; Z88.2 Allergy status to sulfonamides; Z88.0 Allergy status to penicillin; Z86.16 Personal history of COVID-19; Z79.899 Other long term (current) drug therapy; Z79.84 Long term (current) use of oral hypoglycemic drugs
CPT/HCPCS: 36415; 80053; 82947; 85025; 99284; A9270

== ENCOUNTER 2022-09-20 13:25 | Emergency (ER) | payer OTHER ==
[2022-09-20] MEDS: Lidocaine 1% 5 ML VIAL INJECT ONE (13:57)
[2022-09-20] MEDS: Bacitracin Oint 1 GM U/D Packet TOP ONE (14:11)
== END 2022-09-20 14:00 | disposition home or self-care (01) ==
LOC: LL.ED 13:25
DX: S61.216A Laceration without foreign body of right little finger without damage to nail, initial encounter (principal); I10 Essential (primary) hypertension; J45.909 Unspecified asthma, uncomplicated; E11.9 Type 2 diabetes mellitus without complications; E03.9 Hypothyroidism, unspecified; E66.9 Obesity, unspecified; Z88.0 Allergy status to penicillin; Z88.2 Allergy status to sulfonamides; Z79.899 Other long term (current) drug therapy; Z79.84 Long term (current) use of oral hypoglycemic drugs; W26.8XXA Contact with other sharp object(s), not elsewhere classified, initial encounter
CPT/HCPCS: 12001; 99282; 99283; J3490

== ENCOUNTER 2022-10-23 19:47 | Emergency (ER) | payer OTHER ==
[2022-10-23] MEDS ORDERED: Sodium Chloride 0.9% 10 ML Syringe FLUSH PRN (20:00)
[2022-10-23] MEDS ORDERED: Sodium Chloride 0.9% 1,000 ML IV ONE (20:01)
[2022-10-23] MEDS ORDERED: HYDROmorphone 0.5 MG/0.5 ML Syringe IVPUSH PRN (20:02)
[2022-10-23] MEDS ORDERED: Ondansetron 4 MG/2 ML SDV IVPUSH PRN (20:03)
[2022-10-23 20:36] LABS: BASOPHILS ABSOLUTE AUTO 0.04 K/uL (0.00-0.20); BASOPHILS PERCENT AUTO 0.5 % (0.0-2.0); EOSINOPHILS ABSOLUTE AUTO 0.56 K/uL (0.00-0.50); HEMATOCRIT 39.3 % (39.0-49.0); HEMOGLOBIN 13.6 g/dL (13.1-16.8); LYMPHOCYTES ABSOLUTE AUTO 2.18 K/uL (0.50-3.50); LYMPHOCYTES PERCENT AUTO 27.1 % (10.0-50.0); MEAN CORPUSCULAR HEMOGLOBIN 34.1 pg (28.2-33.3); MEAN CORPUSCULAR HGB CONC 34.6 g/dL (31.7-36.0); MEAN CORPUSCULAR VOLUME 98.5 fL (84.0-98.0); MONOCYTES ABSOLUTE AUTO 0.86 K/uL (0.00-1.00); MONOCYTES PERCENT AUTO 10.7 % (2.0-14.0); NEUTROPHILS ABSOLUTE AUTO 4.41 K/uL (1.40-7.00); NEUTROPHILS PERCENT AUTO 54.7 % (45.0-80.0); PLATELET COUNT,PLT 193 K/uL (150-350); RED BLOOD CELL COUNT 3.99 M/uL (4.33-5.41); RED CELL DISTRIBUTION WIDTH 14.9 % (11.2-14.1); WHITE BLOOD CELL COUNT,WBC 8.1 K/uL (4.0-10.2)
[2022-10-23] MEDS ORDERED: Tamsulosin 0.4 MG Cap.ER PO ONE (20:52)
[2022-10-23 20:53] LABS: ALANINE AMINOTRANSFERASE,ALT 14 U/L (12-78); ALBUMIN 4.1 g/dL (3.4-5.0); ALKALINE PHOSPHATASE 109 IU/L (46-116); ANION GAP 6.8 meq/L (7-15); ASPARTATE AMNIOTRANSFERASE,AST 21 U/L (15-37); BILIRUBIN TOTAL 0.5 mg/dL (0.2-1.0); BLOOD UREA NITROGEN,BUN 14 mg/dL (7-18); CALCIUM 9.1 mg/dL (8.5-10.1); CARBON DIOXIDE,CO2 28.2 mmol/L (21.0-32.0); CHLORIDE,CL 105 mmol/L (98-107); CREATININE 0.99 mg/dL (0.51-1.17); ESTIMATED GFR 97 mL/min (>=60); GLUCOSE RANDOM 97 mg/dL (70-99); LIPASE 61 U/L (16-77); POTASSIUM,K 3.9 mmol/L (3.5-5.1); PROTEIN TOTAL,TP 7.9 g/dL (6.4-8.2); SODIUM,NA 140 mmol/L (136-145)
[2022-10-23] MEDS ORDERED: Take Home: Tamsulosin HCl 0.4 MG, 6 Cap Pack PO ONE (21:32)
[2022-10-23] MEDS ORDERED: Take Home: Acetaminophen/HYDROcodone 325-10 MG, 5 Tab Pack PO ONE (21:33)
== END 2022-10-23 22:00 | disposition home or self-care (01) ==
LOC: LL.ED 19:47
DX: N13.2 Hydronephrosis with renal and ureteral calculous obstruction (principal); I10 Essential (primary) hypertension; J45.909 Unspecified asthma, uncomplicated; E11.9 Type 2 diabetes mellitus without complications; E03.9 Hypothyroidism, unspecified; E66.9 Obesity, unspecified; Z86.16 Personal history of COVID-19; Z88.0 Allergy status to penicillin; Z88.2 Allergy status to sulfonamides; Z79.899 Other long term (current) drug therapy; Z79.84 Long term (current) use of oral hypoglycemic drugs
CPT/HCPCS: 36415; 74176; 80053; 83605; 83690; 85025; 96361; 96374; 99284; 99284-25; A9270-GY; J1170; J7030

== ENCOUNTER 2022-12-29 12:09 | Emergency (ER) | payer OTHER ==
[2022-12-29] MEDS ORDERED: Sodium Chloride 0.9% 1,000 ML IV ONE (12:37)
[2022-12-29] MEDS ORDERED: Sodium Chloride 0.9% 10 ML Syringe FLUSH PRN (12:37)
[2022-12-29 12:41] LABS: APPEARANCE,URINE CLEAR; BILIRUBIN,URINE NEGATIVE (NEGATIVE); COLOR,URINE YELLOW; GLUCOSE,URINE NEGATIVE (NEGATIVE); KETONES,URINE NEGATIVE (NEGATIVE); LEUKOCYTE ESTERASE,URINE NEGATIVE (NEGATIVE); NITRITE,URINE NEGATIVE (NEGATIVE); OCCULT BLOOD,URINE MODERATE (NEGATIVE); PH,URINE 6.5 (5.0-9.0); PROTEIN,URINE NEGATIVE (NEGATIVE); UROBILINOGEN,URINE 0.2 E.U./dL (0.2-1.0)
[2022-12-29 12:54] LABS: BACTERIA,URINE RARE /HPF (NONE TO FEW); EPITHELIAL CELLS,URINE RARE /LPF; RBC,URINE 0-5 /HPF; WBC,URINE 0-5 /HPF
[2022-12-29 12:55] LABS: ALANINE AMINOTRANSFERASE,ALT 23 U/L (12-78); ALKALINE PHOSPHATASE 120 IU/L (46-116); ASPARTATE AMNIOTRANSFERASE,AST 18 U/L (15-37); BILIRUBIN TOTAL 0.9 mg/dL (0.2-1.0); BLOOD UREA NITROGEN,BUN 6 mg/dL (7-18); CALCIUM 9.2 mg/dL (8.5-10.1); CARBON DIOXIDE,CO2 27.3 mmol/L (21.0-32.0); CHLORIDE,CL 103 mmol/L (98-107); CREATININE 0.76 mg/dL (0.51-1.17); GLUCOSE RANDOM 82 mg/dL (70-99); POTASSIUM,K 3.3 mmol/L (3.5-5.1); PROTEIN TOTAL,TP 7.9 g/dL (6.4-8.2); SODIUM,NA 141 mmol/L (136-145)
[2022-12-29 12:56] LABS: ESTIMATED GFR 114 mL/min (>=60)
[2022-12-29 13:06] LABS: BASOPHILS ABSOLUTE AUTO 0.02 K/uL (0.00-0.20); BASOPHILS PERCENT AUTO 0.3 % (0.0-2.0); HEMATOCRIT 36.3 % (39.0-49.0); LYMPHOCYTES ABSOLUTE AUTO 1.86 K/uL (0.50-3.50); MEAN CORPUSCULAR HEMOGLOBIN 36.1 pg (28.2-33.3); MEAN CORPUSCULAR HGB CONC 35.8 g/dL (31.7-36.0); MEAN CORPUSCULAR VOLUME 100.8 fL (84.0-98.0); MONOCYTES ABSOLUTE AUTO 0.78 K/uL (0.00-1.00); MONOCYTES PERCENT AUTO 11.7 % (2.0-14.0); NEUTROPHILS ABSOLUTE AUTO 3.59 K/uL (1.40-7.00); PLATELET COUNT,PLT 177 K/uL (150-350); RED CELL DISTRIBUTION WIDTH 14.9 % (11.2-14.1); WHITE BLOOD CELL COUNT,WBC 6.7 K/uL (4.0-10.2)
[2022-12-29] MEDS ORDERED: Ketorolac 15 MG/ML SDV IVPUSH ONE (13:19)
== END 2022-12-29 15:02 | disposition home or self-care (01) ==
LOC: LL.ED 12:09
DX: N13.2 Hydronephrosis with renal and ureteral calculous obstruction (principal); I10 Essential (primary) hypertension; E11.9 Type 2 diabetes mellitus without complications; E03.9 Hypothyroidism, unspecified; E66.9 Obesity, unspecified; Z68.41 Body mass index [BMI] 40.0-44.9, adult; Z86.16 Personal history of COVID-19; Z79.899 Other long term (current) drug therapy; Z88.0 Allergy status to penicillin; Z88.2 Allergy status to sulfonamides; Z88.8 Allergy status to other drugs, medicaments and biological substances
CPT/HCPCS: 36415; 74176; 80053; 81001; 85025; 96374; 99284-25; J1885; J7030

== ENCOUNTER 2023-08-11 09:37 | Emergency (ER) | payer OTHER ==
[2023-08-11] MEDS: Ketorolac 30 MG/ML SDV IM ONE (10:20)
== END 2023-08-11 11:46 | disposition home or self-care (01) ==
LOC: LL.ED 09:37
DX: S62.611A Displaced fracture of proximal phalanx of left index finger, initial encounter for closed fracture (principal); R00.1 Bradycardia, unspecified; I10 Essential (primary) hypertension; E11.9 Type 2 diabetes mellitus without complications; E03.9 Hypothyroidism, unspecified; E66.9 Obesity, unspecified; J45.909 Unspecified asthma, uncomplicated; Z87.891 Personal history of nicotine dependence; Z79.899 Other long term (current) drug therapy; Z79.84 Long term (current) use of oral hypoglycemic drugs; Z88.0 Allergy status to penicillin; Z88.2 Allergy status to sulfonamides; Z88.8 Allergy status to other drugs, medicaments and biological substances; W23.0XXA Caught, crushed, jammed, or pinched between moving objects, initial encounter; Y99.0 Civilian activity done for income or pay
CPT/HCPCS: 29125; 73140-F1; 96372; 99283-25; J1885